=== PATIENT | female | born 1970 | race Caucasian/White ===

== ENCOUNTER → 2018-02-06 01:26 | Outpatient (CLI) | payer OTHER, SELFPAY ==
--- NOTE | 2018-02-06 10:30 | MERGE_ITS ---
*[facility]* *[facility]* [address] [place] [address] Date of study: 02/06/2018 Transthoracic Echocardiography M-mode, complete 2D, complete spectral Doppler, and color Doppler *STUDY CONCLUSIONS* Summary: 1. Left ventricle: The cavity size was normal. Wall thickness was at the upper limits of normal. Systolic function was normal. The estimated ejection fraction was 55-60%. Wall motion was normal; there were no regional wall motion abnormalities. 2. Right ventricle: The cavity size was dilated. Systolic function was mildly reduced. 3. Ventricular septum: The contour showed diastolic flattening. These changes are consistent with RV volume overload. 4. Atrial septum: There was a possible atrial level defect with left to right shunt. 5. Tricuspid valve: There was mild-moderate regurgitation. 6. Pulmonary arteries: Pulmonary systolic pressure was increased, in the range of 40mm Hg to 45mm Hg. 7. Inferior vena cava: The vessel was patent and normal in size. The respirophasic diameter changes were in the normal range (greater than or equal to 50%), consistent with normal central venous pressure. *PATIENT PRESENTATION* Height: 175.3cm ((69in) ) S/D Pressure: 130 / 78 Weight: 117.9kg ((259.5lb) ) BSA: 2.45m^2 Test start time: 10:40 AM. Test stop time: 11:50 AM. PERFORMING Unknown PERFORMING [facility] CONTRACT ASSOCIATE MANAGER Heather Velazquez, RT (R)(CT), RDCS ORDERING Lelo Moncada Pa-C REFERRING Antwan Pa-Lelo England Pa-C, Katherine Clemente *PROCEDURE DATA* Procedure information: The patient was identified by two identifiers. This study was interpreted by [facility]. Pertinent images and digital data are archived for permanent storage and are available for subsequent review. No prior study was available for comparison. Study status: Routine. Transthoracic echocardiography. M-mode, complete 2D, complete spectral Doppler, and color Doppler. A Transthoracic Echocardiogram was performed. Scanning was performed from the parasternal, apical, subcostal, and suprasternal notch acoustic windows. Images were obtained using an [id number] cardiac ultrasound machine. Image quality was adequate. Study completion: The patient tolerated the procedure well. There were no complications. History: PMH: Heart murmur. *CARDIAC ANATOMY* Left ventricle: The cavity size was normal. Wall thickness was at the upper limits of normal. Systolic function was normal. The estimated ejection fraction was 55-60%. Wall motion was normal; there were no regional wall motion abnormalities. Aortic valve: Trileaflet; normal thickness leaflets. Mobility was not restricted. Doppler: Transvalvular velocity was within the normal range. There was no stenosis. There was trivial regurgitation. VTI ratio of LVOT to aortic valve: 0.75. Valve area (VTI): 2.4cm^2. Indexed valve area (VTI): 1cm^2/m^2. Peak velocity ratio of LVOT to aortic valve: 0.77. Valve area (Vmax): 2.5cm^2. Indexed valve area (Vmax): 1cm^2/m^2. Mean velocity ratio of LVOT to aortic valve: 0.73. Valve area (Vmean): 2.3cm^2. Indexed valve area (Vmean): 0.9cm^2/m^2. Mean gradient (S): 6.4mm Hg. Peak gradient (S): 11.1mm Hg. Aorta: Aortic root: The aortic root was normal in size. Ascending aorta: The ascending aorta was normal in size. Mitral valve: Structurally normal valve. Mobility was not restricted. Doppler: Transvalvular velocity was within the normal range. There was no evidence for stenosis. There was trivial regurgitation. Valve area by pressure half-time: 4cm^2. Indexed valve area by pressure half-time: 1.6cm^2/m^2. Peak gradient (D): 3.3mm Hg. Left atrium: The atrium was normal in size. Atrial septum: There was a possible atrial level defect with left to right shunt. Right ventricle: The cavity size was dilated. Systolic function was mildly reduced. Ventricular septum: The contour showed diastolic flattening. These changes are consistent with RV volume overload. Pulmonic valve: Poorly visualized. Doppler: Transvalvular velocity was within the normal range. There was no evidence for stenosis. There was trivial regurgitation. Tricuspid valve: Structurally normal valve. Doppler: Transvalvular velocity was within the normal range. There was no evidence for stenosis. There was mild-moderate regurgitation. Pulmonary artery: Poorly visualized. Pulmonary systolic pressure was increased, in the range of 40mm Hg to 45mm Hg. Right atrium: The atrium was normal in size. Pericardium: There was no pericardial effusion. Systemic veins: Inferior vena cava: Well visualized. The vessel was patent and normal in size. The respirophasic diameter changes were in the normal range (greater than or equal to 50%), consistent with normal central venous pressure. Baseline ECG: Normal sinus rhythm. Measurements Left ventricle Value Reference LV ID, ED, PLAX 4.6 cm 3.5 - 6.0 LV ID, ES, PLAX 3.2 cm 2.1 - 4.0 LV PW thickness, ED, PLAX 1.0 cm LV end-diastolic volume, 1-p A2C 80 ml LV ejection fraction, 1-p A2C 64 % LV end-diastolic volume, 1-p A4C 87 ml LV ejection fraction, 1-p A4C 66 % LV e', lateral 0.126 m/sec LV E/e', lateral 7 LV e', medial 0.105 m/sec LV E/e', medial 9 LV e', average 0.115 m/sec LV E/e', average 8 Ventricular septum Value Reference IVS thickness, ED, PLAX 1.1 cm LVOT Value Reference LVOT ID, A-P 2.0 cm LVOT area 3.2 cm^2 LVOT peak velocity, S 1.29 m/sec LVOT mean velocity, S 0.89 m/sec LVOT VTI, S 29.0 cm LVOT peak gradient, S 6.6 mm Hg LVOT mean gradient, S 3.6 mm Hg Stroke volume (SV), LVOT DP 93 ml Stroke index (SV/bsa), LVOT DP 38 ml/m^2 Aortic valve Value Reference Aortic valve peak velocity, S 1.7 m/sec Aortic valve mean velocity, S 1.22 m/sec Aortic valve VTI, S 38.5 cm Aortic mean gradient, S 6.4 mm Hg Aortic peak gradient, S 11.1 mm Hg VTI ratio, LVOT/AV 0.75 Aortic valve area, VTI 2.4 cm^2 Velocity ratio, peak, LVOT/AV 0.77 Aortic valve area, peak velocity 2.5 cm^2 Velocity ratio, mean, LVOT/AV 0.73 Aortic valve area, mean velocity 2.3 cm^2 Aortic valve area/bsa, mean velocity 0.9 cm^2/m^2 Aorta Value Reference Aortic root ID, ED 3.0 cm Ascending aorta ID, A-P, S 3.4 cm RVOT Value Reference RVOT VTI, S 21.1 cm Left atrium Value Reference LA ID, A-P, ES 3.8 cm LA ID/bsa, A-P 1.6 cm/m^2 <=2.2 LA area, ES, A4C (H) 23.9 cm^2 8.8 - 23.4 LA area, ES, A2C 20 cm^2 LA volume/bsa, ES, 1-p A4C 32 ml/m^2 LA volume, ES, 2-p 69 ml LA volume/bsa, ES, 2-p 28 ml/m^2 LA/aortic root ratio 1.26 Mitral valve Value Reference Mitral E-wave peak velocity 0.91 m/sec Mitral A-wave peak velocity 0.54 m/sec Mitral deceleration time 188 ms 150 - 230 Mitral pressure half-time 55 ms Mitral peak gradient, D 3.3 mm Hg Mitral A-wave duration 169 ms Mitral E/A ratio, peak 1.7 Mitral valve area, PHT, DP 4 cm^2 Pulmonary veins Value Reference Pulmonary vein peak velocity, S 0.66 m/sec Pulmonary vein peak velocity, D 0.73 m/sec Pulmonary vein velocity ratio, peak, 0.9 S/D Pulmonary vein A-wave reversal peak 0.36 m/sec velocity Pulmonary vein A-wave reversal 195 ms duration PVa-MVa duration difference 26 ms Tricuspid valve Value Reference Tricuspid regurg peak velocity 3.1 m/sec Tricuspid peak RV-RA gradient 39.2 mm Hg Right atrium Value Reference RA area, ES, A4C 17.4 cm^2 8.3 - 19.5 Legend: (L) and (H) edwar values outside specified reference range. I have personally reviewed the images and have reviewed and edited the reported findings. Electronically signed by Pauly Paige 02/06/2018 15:24
== END ==
PROVIDERS: PCP Nurse Practitioner Family; Visit Provider Physician Assistant Medical
DX: R01.1 Cardiac murmur, unspecified (principal); I07.1 Rheumatic tricuspid insufficiency; I50.1 Left ventricular failure, unspecified; I10 Essential (primary) hypertension
CPT/HCPCS: 93306

== ENCOUNTER 2018-10-09 17:50 | Outpatient (REF) | payer OTHER, SELFPAY ==
--- NOTE | 2018-10-09 16:45 | PAPFT_PTH ---
PATIENT: Sanam Christian LOC: [facility] U#:[id number] AGE/SX: 48/F ROOM: RE10/09/[address]: Mya Duffy : 1970 BED: DIS: 10/09/2018 SPEC #: [id number] RECD: 10/10/18 13:03 STATUS: JIHAN REKryzsztof #: [id number] KULDEEP: 10/09/18 16:[address]: Mya Duffy [facility] Cytology RECD BY: Sanam Das ENTERED: 10/10/18 13:03 SP TYPE: PAPFT OTHR DR: Wilma Parra Tissues: 1 - CX/ENDOCX FOR PAP SMEARS Procedures: PAP THIN PREP/UVM Screening HPV DNA PROBE Comments: [id number]
== END 2018-10-09 18:10 ==
LOC: NCHCN 17:50
PROVIDERS: PCP Nurse Practitioner Family; Visit Provider Nurse Practitioner Family
DX: Z12.4 Encounter for screening for malignant neoplasm of cervix (principal); Z11.51 Encounter for screening for human papillomavirus (HPV)
CPT/HCPCS: 88142; 87624

== ENCOUNTER 2018-10-24 00:52 | Outpatient (CLI) | payer OTHER, SELFPAY ==
--- NOTE | 2018-10-24 15:40 | DI.MAMMO_ITS ---
SYMPTOMS/DIAGNOSIS: [facility], Z00.00, SCREENING, Z12.39 BILATERAL SCREENING MAMMOGRAMS: Mammograms were interpreted according to the usual protocol including computer analysis with CAD system, tomosynthesis and C view imaging. Comparison is made with exams from 2012 through 2017. The breasts are composed of heterogeneously dense fibroglandular tissue, breast density category C. No suspicious masses or suspicious microcalcifications are seen. There has been no significant change. IMPRESSION: Category 1C, negative mammogram. Yearly screening mammography is recommended. [facility] ASSESSMENT OF FINDINGS: Negative. Category 1. Patient will receive a letter notifying them of these results. Bi-RADS category C. The breasts are heterogeneously dense, which may obscure small masses.
== END 2018-10-24 01:12 ==
PROVIDERS: PCP Nurse Practitioner Family; Visit Provider Nurse Practitioner Family
DX: Z00.00 Encounter for general adult medical examination without abnormal findings (principal); Z12.31 Encounter for screening mammogram for malignant neoplasm of breast
CPT/HCPCS: 77063; 77067

== ENCOUNTER 2019-04-13 19:16 | Outpatient (REF) | payer OTHER, SELFPAY ==
[2019-04-13 20:43] LABS: Anion Gap 8.4 mmol/L (3-11); BUN 16 mg/dL (7-18); CO2 28.6 mmol/L (21.0-32.0); Calcium 8.8 mg/dL (8.5-10.1); Chloride 104 mmol/L (98-107); Glucose 95 mg/dL (70-100); Potassium 3.8 mmol/L (3.5-5.1); Sodium 141 mmol/L (136-145)
== END 2019-04-13 19:36 ==
LOC: NCHCN 19:16
PROVIDERS: PCP Nurse Practitioner Family; Visit Provider Nurse Practitioner Family
DX: I10 Essential (primary) hypertension (principal)
CPT/HCPCS: 80048

== ENCOUNTER 2019-05-04 08:25 | Outpatient (REF) | payer OTHER, SELFPAY ==
[2019-05-04 22:13] LABS: Calculated LDL 73 mg/dL; Cholesterol 128 mg/dL (<200); Glucose 90 mg/dL (74-106); HDL Cholesterol 44 mg/dL (40-60); Triglyceride 55 mg/dL (<150)
== END 2019-05-04 08:45 ==
LOC: NCHCN 08:25
PROVIDERS: PCP Nurse Practitioner Family; Visit Provider Nurse Practitioner Family
DX: I10 Essential (primary) hypertension (principal); E66.9 Obesity, unspecified
CPT/HCPCS: 80061; 82947

== ENCOUNTER 2019-11-04 22:50 | Outpatient (REF) | payer OTHER, SELFPAY ==
[2019-11-04 20:46] LABS: ALT 40 U/L (14-59); AST 25 U/L (15-37); Alkaline Phosphatase 67 U/L (46-116); BUN 18 mg/dL (7-18); CREATININE 0.98 mg/dL (0.55-1.02); Chloride 101 mmol/L (98-107); Glucose 111 mg/dL (74-106); Potassium 3.2 mmol/L (3.5-5.1); Sodium 137 mmol/L (136-145); Total Protein 7.5 g/dL (6.4-8.2)
[2019-11-04 21:15] LABS: Bilirubin, Direct 0.23 mg/dL (0.00-0.20)
== END 2019-11-04 23:10 ==
LOC: NCHCN 22:50
PROVIDERS: PCP Nurse Practitioner Family; Visit Provider Nurse Practitioner Family
DX: I10 Essential (primary) hypertension (principal); Z79.899 Other long term (current) drug therapy
CPT/HCPCS: 80048; 80076

== ENCOUNTER 2019-11-11 11:57 | Outpatient (CLI) | payer OTHER, SELFPAY ==
--- NOTE | 2019-11-11 | DI.MAMMO_ITS ---
EXAM: MG MAMMO SCREENING CLINICAL HISTORY: SCREENING Z12.39 TECHNIQUE: Mammograms were interpreted according to the usual protocol including computer analysis w [employer] CAD system, tomosynthesis and C-view imaging. COMPARISON: FINDINGS: The breasts are heterogeneously dense. No dominant mass or clumped microcalcification is identified in either breast. The current examination is compared with previous examinations including October 2018 and there has been no significant interval change in appearance in comparison with the previous studi es. IMPRESSION: No specific evidence of malignancy at this time. Routine screening examinations are suggested at ye darin intervals in this age group according to the ACS ACR guidelines. Category: BI-RADS Cat 1 - Negative Breast Density - Category C - Heterogeneously dense
== END 2019-11-11 12:17 ==
PROVIDERS: PCP Nurse Practitioner Family; Visit Provider Nurse Practitioner Family
DX: Z12.31 Encounter for screening mammogram for malignant neoplasm of breast (principal)
CPT/HCPCS: 77063; 77067

== ENCOUNTER 2019-12-16 19:25 | Outpatient (REF) | payer OTHER, SELFPAY ==
[2019-12-16 20:40] LABS: ALT 25 U/L (14-59); AST 18 U/L (15-37); Albumin 3.9 g/dL (3.4-5.0); Alkaline Phosphatase 63 U/L (46-116); Anion Gap 9.3 mmol/L (3-11); BUN 14 mg/dL (7-18); Bilirubin, Direct 0.19 mg/dL (0.00-0.20); Bilirubin, Total 0.8 mg/dL (0.2-1.0); CO2 28.7 mmol/L (21.0-32.0); CREATININE 0.69 mg/dL (0.55-1.02); Calcium 8.8 mg/dL (8.5-10.1); Chloride 100 mmol/L (98-107); Glucose 103 mg/dL (74-106); Potassium 3.6 mmol/L (3.5-5.1); Sodium 138 mmol/L (136-145); Total Protein 7.4 g/dL (6.4-8.2)
== END 2019-12-16 19:45 ==
LOC: NCHCN 19:25
PROVIDERS: PCP Nurse Practitioner Family; Visit Provider Nurse Practitioner Family
DX: B35.1 Tinea unguium (principal); Z51.81 Encounter for therapeutic drug level monitoring; I10 Essential (primary) hypertension
CPT/HCPCS: 80048; 80076

== ENCOUNTER 2020-02-02 16:48 | Outpatient (REF) | payer OTHER, SELFPAY ==
[2020-02-02 19:29] LABS: ALT 23 U/L (14-59); AST 17 U/L (15-37); Albumin 3.9 g/dL (3.4-5.0); Alkaline Phosphatase 59 U/L (46-116); Bilirubin, Direct 0.18 mg/dL (0.00-0.20); Bilirubin, Total 0.8 mg/dL (0.2-1.0); CREATININE 0.67 mg/dL (0.55-1.02); Total Protein 7.3 g/dL (6.4-8.2)
== END 2020-02-02 17:08 ==
LOC: NCHCN 16:48
PROVIDERS: PCP Nurse Practitioner Family; Visit Provider Nurse Practitioner Family
DX: Z79.899 Other long term (current) drug therapy (principal); Z51.81 Encounter for therapeutic drug level monitoring
CPT/HCPCS: 80076; 82565

== ENCOUNTER 2021-05-15 16:55 | Outpatient (REF) | payer OTHER, SELFPAY ==
[2021-05-15 16:58] LABS: Anion Gap 7.4 mmol/L (3-11); BUN 15 mg/dL (7-18); CO2 31.6 mmol/L (21.0-32.0); CREATININE 0.6 mg/dL (0.55-1.02); Calcium 8.8 mg/dL (8.5-10.1); Chloride 100 mmol/L (98-107); Glucose 84 mg/dL (74-106); Magnesium 2.1 mg/dL (1.8-2.4); Potassium 3.5 mmol/L (3.5-5.1); Sodium 139 mmol/L (136-145)
== END 2021-05-15 16:56 | disposition home or self-care (01) ==
LOC: NCHCN 16:55
PROVIDERS: PCP Nurse Practitioner Family; Visit Provider Nurse Practitioner Family
DX: I10 Essential (primary) hypertension (principal); Z51.81 Encounter for therapeutic drug level monitoring
CPT/HCPCS: 80048; 83735

== ENCOUNTER → 2021-12-27 00:13 | Outpatient (CLI) | payer BC, SELFPAY ==
--- OUTSIDE RECORDS SUMMARY | 2021-12-27 00:15 | XMS_ITS | Encounter Summary ---
:1970 Author Organization [place] [address] Care Team Providers Name Role Phone Unavailable Primary Care Provider Unavailable Encounter Details Date Type Department Care Team Description 05/16/2018 Abstract Cardiology at [facility], Lipoma of abdominal wall [address] [facility] [place] [address] Social History Tobacco Use Types Packs/Day Years Used Date Never Assessed Sex Assigned at Date Recorded Not on file documented as of this encounter Plan of Treatment Not on filedocumented as of this encounter Visit Diagnoses Diagnosis Lipoma of abdominal wall Lipoma of other skin and subcutaneous ti ssue documented in this encounter
--- OUTSIDE RECORDS SUMMARY | 2021-12-27 00:15 | XMS_ITS | Encounter Summary ---
:1970 Author Organization [facility] [place] [address] Care Team Providers Name Role Phone Unavailable Primary Care Provider Unavailable Encounter Details Date Type Department Care Team Description 06/11/2018 Interpretation Only [facility] Marco Vázquez Jr., Pulmonary [facility] [address] [place], [place] [address] [place] [address] [phone] (Wo rk) Social History Tobacco Use Types Packs/Day Years Used Date Former Smoker Smokeless Tobacco: Never Used Comments: very briefly smoked in HS Sex Assigned at Date Recorded Not on file documented as of this encounter Plan of Treatment Not on filedocumented as of this encounter Procedures Procedure Name Priority Date/Time Associated Diagnosis Comme nts ECHO SCAN (SCAN) 06/12/2018 12:00 AM Resu lts for this EST procedure are i n the results section. documented in this encounter Results SCAN DOC: ECHO (06/12/2018 12:00 AM EST) Narrative 06/12/2018 12:00 AM EST This result has an attachment that is no t available. Ordered by an unspecified provider. Scanning Provider MEDIA MGR SCAN EXT ORDR/RSLT documented in this encounter Visit Diagnoses Diagnosis Pulmonary HTN Other chronic pulmonary heart diseases documented in this encounter
--- OUTSIDE RECORDS SUMMARY | 2021-12-27 00:15 | XMS_ITS | Clinical Summary ---
:1970 Author Organization [facility] [place] [address] Care Team Providers Name Role Phone Mya Duffy Vaughn HANSEN Primary Care Provider Allergies Active Allergy Reactions Severity Noted Date Comments Malachi Inhibitors 05/16/2018 Hymenoptera Allergenic Extract 05/16/2018 Medications Medication Sig Dispensed Refills Start Date End Date Status hydroCHLOROthiazide Take 50 mg by 0 Active (HYDRODIURIL) 50 mg Tablet mouth daily. magnesium 250 mg Tablet Take 1 tablet 0 Active by mouth daily. meclizine (ANTIVERT) 25 mg Take 25 mg by 0 Active Tablet mouth 3 times daily as needed. Active Problems Problem Noted Date Pulmonary HTN 06/12/2018 Heart murmur 05/16/2018 Edema 05/16/2018 Vertigo 05/16/2018 Lipoma of abdominal wall 05/16/2018 Obesity 05/16/2018 Hypertension 05/16/2018 Family History Medical History Relation Comments Hypertension Brother 1 Heart Failure Brother 3 Hypertension Brother 3 Heart Murmur Maternal Grandmother Heart Murmur Mother Heart Surgery Mother Heart Murmur Sister Relation Status Comments Brother 1 Alive Brother 2 Brother 3 Alive Father Maternal Grandmother Mother Sister Alive Social History Tobacco Use Types Packs/Day Years Used Date Former Smoker Smokeless Tobacco: Never Used Comments: very briefly smoked in HS Sex Assigned at Date Recorded Not on file Last Filed Vital Signs Vital Sign Reading Time Taken Comments Blood Pressure 110/70 05/20/2018 1:27 PM EST Pulse 80 05/20/2018 1:18 PM EST per ekg Temperature - - Respiratory Rate - - Oxygen Saturation - - Inhaled Oxygen Concentration - - Weight 126.1 kg (278 lb) 05/20/2018 1:18 PM EST Height 175.3 cm (5' 9) 05/20/2018 1:18 PM EST Body Mass Index 41.05 05/20/2018 1:18 PM EST Plan of Treatment Health Maintenance Due Date Last Done Comments Covid-19 Vaccine (#1) 09/21/1975 HIV screen 1988 Hepatitis C Screening 1988 Lipid Screening 1988 Tdap adult 1989 Tetanus vaccine 1989 HPV test 2000 PAP Smear 2000 Breast Cancer Share Decision Needed 2010 Colonoscopy 09/21/2015 Breast Cancer screening 2020 Zoster vaccine (1 of 2) 2020 Influenza (Flu) vaccine (1 of 1 - Influenza standard 02/08/2022 series) Insurance Payer Benefit Plan / Subscriber ID Effective Dates Phone Addre ss Type Group AETNA AETNA CHOICE POS II [id number] 2015-Present [address] [place] [address] (Work) [id number] Care Teams Duplex Trimmer Relationship Specialty Start Date End Date Mya Duffy APRN PCP - General Family Medicine 06/17/18 [address] [place] [address]
--- NOTE | 2021-12-27 17:20 | DI.MAMMO_ITS ---
Exam(s) MAMMO SCREENING EXAM: MAMMO SCREENING CLINICAL HISTORY: SCREENING FOR BREAST CA, Z12.39. TECHNIQUE: Bilateral full field digital CC and MLO mammographic images were obtained with 3D tomosyn thesis and utilizing computer aided detection (CAD). COMPARISON: Prior mammograms were reviewed, the most recent being November 2019. FINDINGS: There has been no significant change in the appearance and distribution of fibroglandular tissue There are no new spiculated masses nor malignant appearing microcalcification groups. There is no significant architectural distortion nor skin thickening-retraction. IMPRESSION: No radiographic evidence of malignancy. BI-RADS Category 1 - Negative Breast Density - Category C - Heterogeneously dense Breast density Category C or D implies that the patient has dense breast tissue. Dense breast tissue can make it harder to find cancer on a mammogram. Dense breast tissue is also associated with an incr eased risk of breast cancer. This information about the result of the mammogram report was provided to the patient to raise their awareness. Use this report when you speak with the patient about their risks for breast cancer, which includes their family history. At that time, you may recommend additional screening tests (Ultrasoun d or MRI) as these tests may add significant information. A negative radiographic report should not delay biopsy if a dominant or clinically suspicious mass is present. Up to ten percent of cancers are not identified on mammography. A negative report may reinforce clinical impression. Adenosis and dense breasts may obscure an underlying neoplasm. False positive reports average 6 to 10%. Patient will receive a letter notifying them of these results.
== END ==
PROVIDERS: PCP Nurse Practitioner Family; Visit Provider Nurse Practitioner Family
DX: Z12.31 Encounter for screening mammogram for malignant neoplasm of breast (principal)
CPT/HCPCS: 77063; 77067

== ENCOUNTER 2022-05-16 09:22 | Outpatient (REF) | payer BC, SELFPAY ==
[2022-05-16 15:45] LABS: Anion Gap 6.7 mmol/L (3-11); BUN 13 mg/dL (7-18); CO2 32.3 mmol/L (21.0-32.0); CREATININE 0.6 mg/dL (0.55-1.02); Calcium 8.9 mg/dL (8.5-10.1); Calculated LDL 64 mg/dL (<100); Chloride 102 mmol/L (98-107); Cholesterol 129 mg/dL (<200); Estimated GFR 108.61 (mL/min/1.73m2); Glucose 97 mg/dL (74-106); HDL Cholesterol 50 mg/dL (40-60); Potassium 3.3 mmol/L (3.5-5.1); Sodium 141 mmol/L (136-145); Triglyceride 76 mg/dL (<150)
== END 2022-05-16 09:23 | disposition home or self-care (01) ==
LOC: NCHCN 09:22
PROVIDERS: PCP Nurse Practitioner Family; Visit Provider Nurse Practitioner Family
DX: Z00.00 Encounter for general adult medical examination without abnormal findings (principal)
CPT/HCPCS: 80048; 80061

== ENCOUNTER 2022-12-10 13:26 | Outpatient (REF) | payer BC, SELFPAY ==
[2022-12-10 15:38] LABS: Anion Gap 5.3 mmol/L (3-11); BUN 15 mg/dL (7-18); CO2 32.7 mmol/L (21.0-32.0); CREATININE 0.7 mg/dL (0.55-1.02); Chloride 102 mmol/L (98-107); Glucose 98 mg/dL (74-106); Potassium 3.6 mmol/L (3.5-5.1); Sodium 140 mmol/L (136-145)
== END 2022-12-10 13:27 | disposition home or self-care (01) ==
LOC: NCHCN 13:26
PROVIDERS: PCP Nurse Practitioner Family; Visit Provider Nurse Practitioner Family
DX: I10 Essential (primary) hypertension (principal)
CPT/HCPCS: 80048

== ENCOUNTER 2023-06-04 09:19 | Outpatient (REF) | payer BC, SELFPAY ==
[2023-06-04 17:23] LABS: BUN 17 mg/dL (7-18); CREATININE 0.8 mg/dL (0.55-1.02); Calcium 8.8 mg/dL (8.5-10.1); Calculated LDL 69 mg/dL (<100); Chloride 101 mmol/L (98-107); Cholesterol 132 mg/dL (<200); Glucose 104 mg/dL (74-106); HDL Cholesterol 50 mg/dL (40-60); Potassium 3.4 mmol/L (3.5-5.1); Sodium 136 mmol/L (136-145); Triglyceride 68 mg/dL (<150)
== END 2023-06-04 09:20 | disposition home or self-care (01) ==
LOC: NCHCN 09:19
PROVIDERS: PCP Nurse Practitioner Family; Visit Provider Nurse Practitioner Family
DX: Z00.00 Encounter for general adult medical examination without abnormal findings (principal); Z13.220 Encounter for screening for lipoid disorders; Z13.228 Encounter for screening for other metabolic disorders
CPT/HCPCS: 80048; 80061

== ENCOUNTER → 2024-01-03 00:08 | Outpatient (CLI) | payer BC, SELFPAY ==
--- NOTE | 2024-01-03 | DI.MAMMO_ITS ---
Exam(s) MAMMO SCREENING EXAM: MAMMO SCREENING CLINICAL HISTORY: Screening, Z12.31 TECHNIQUE: Bilateral full field digital CC and MLO mammographic images were obtained with 3D tomosyn thesis and utilizing computer aided detection (CAD). COMPARISON: Available for comparison. FINDINGS: Masses/Architectural Distortion: None seen. Microcalcifications: No suspicious pleomorphic-type are seen. Skin Thickening/Nipple Retraction: None. IMPRESSION: 1. No significant interval change with no specific features of malignancy noted. 2. Unless there is more urgent need, screening mammography is recommended, as per [employer] [employer] guidelines. BI-RADS Category 1 - Negative Breast Density - Category C - Heterogeneously dense Breast density category C or D implies that the patient has dense breast tissue. Dense breast tissue is very common and is not abnormal but dense breast tissue can make it harder to find cancer on a ma mmogram. Also, dense breast tissue may increase their breast cancer risk. This information about the result of the mammogram report was provided to the patient to raise their awareness. Use this report when you speak with the patient about their risks for breast cancer, which includes their family hist ory. At that time, you may recommend for more screening tests (Ultrasound or MRI) as they might be us eful based on their risk. A negative radiographic report should not delay biopsy if a dominant or clinically suspicious mass is present. Up to ten percent of cancers are not identified on mammography. A negative report may reinforce clinical impression. Adenosis and dense breasts may obscure an underlying neoplasm. False positive reports average 6 to 10%. Patient will receive a letter notifying them of these results.
== END ==
PROVIDERS: PCP Nurse Practitioner Family; Visit Provider Nurse Practitioner Family
DX: Z12.31 Encounter for screening mammogram for malignant neoplasm of breast (principal); R92.333 Mammographic heterogeneous density, bilateral breasts
CPT/HCPCS: 77063; 77067

== ENCOUNTER 2024-06-08 09:12 | Outpatient (REF) | payer BC, SELFPAY ==
--- NOTE | 2024-06-08 07:45 | PAPFT_PTH ---
PATIENT: Sanam Christian LOC: [facility]#:[id number] AGE/SX: 53/F ROOM: RE06/08/[address]: Abram Jameson : 1970 BED: DIS: 06/08/2024 SPEC #: [id number] RECD: 06/08/24 17:33 STATUS: JIHAN REQ #: [id number] KULDEEP: 06/08/24 07:[address]: Abram Jameson DEPT: [facility] Cytology RECD BY: Sanam Das Tissues: 1 - CX/ENDOCX FOR PAP SMEARS Procedures: PAP THIN PREP/UVM Screening HPV DNA PROBE Comments: [id number] (HPV 16 & 18/45)
[2024-06-08 16:12] LABS: Anion Gap 10.6 mmol/L (3-11); BUN 12 mg/dL (7-18); CO2 28.4 mmol/L (21.0-32.0); CREATININE 0.9 mg/dL (0.55-1.02); Chloride 102 mmol/L (98-107); Estimated GFR 76.44 (mL/min/1.73m2); Glucose 101 mg/dL (74-106); Potassium 3.3 mmol/L (3.5-5.1); Sodium 141 mmol/L (136-145)
[2024-06-08 16:47] LABS: Hemoglobin A1C 5.8 % (<5.7)
== END 2024-06-08 09:13 | disposition home or self-care (01) ==
LOC: NCHCN 09:12
PROVIDERS: PCP Physician Assistant Medical; Visit Provider Physician Assistant Medical
DX: Z11.51 Encounter for screening for human papillomavirus (HPV) (principal); I10 Essential (primary) hypertension; Z13.1 Encounter for screening for diabetes mellitus; Z01.419 Encounter for gynecological examination (general) (routine) without abnormal findings
CPT/HCPCS: 80048; 88142; 83036; 87624

== ENCOUNTER 2024-11-25 17:34 | Outpatient (REF) | payer BC, SELFPAY ==
[2024-11-25 21:06] LABS: Anion Gap 6.8 mmol/L (3-11); BUN 17 mg/dL (7-18); CO2 32.2 mmol/L (21.0-32.0); CREATININE 0.7 mg/dL (0.55-1.02); Calcium 8.9 mg/dL (8.5-10.1); Chloride 101 mmol/L (98-107); Estimated GFR 102.71 (mL/min/1.73m2); Glucose 110 mg/dL (74-106); Sodium 140 mmol/L (136-145)
== END 2024-11-25 17:35 | disposition home or self-care (01) ==
LOC: NCHCN 17:34
PROVIDERS: PCP Physician Assistant Medical; Visit Provider Physician Assistant Medical
DX: E87.6 Hypokalemia (principal); I10 Essential (primary) hypertension
CPT/HCPCS: 80048

== ENCOUNTER 2025-01-01 18:08 | Outpatient (REF) | payer BC, SELFPAY ==
[2025-01-01 16:34] LABS: Anion Gap 5.0 mmol/L (3-11); BUN 16 mg/dL (7-18); CO2 32.0 mmol/L (21.0-32.0); Calcium 8.7 mg/dL (8.5-10.1); Chloride 103 mmol/L (98-107); Estimated GFR 102.71 (mL/min/1.73m2); Glucose 104 mg/dL (74-106); Potassium 3.3 mmol/L (3.5-5.1); Sodium 140 mmol/L (136-145)
== END 2025-01-01 18:09 | disposition home or self-care (01) ==
LOC: NCHCN 18:08
PROVIDERS: PCP Physician Assistant Medical; Visit Provider Physician Assistant Medical
DX: E87.6 Hypokalemia (principal)
CPT/HCPCS: 80048

== ENCOUNTER 2025-01-22 17:14 | Outpatient (REF) | payer BC, SELFPAY ==
[2025-01-22 16:33] LABS: Anion Gap 8.5 mmol/L (3-11); BUN 14 mg/dL (7-18); CO2 30.5 mmol/L (21.0-32.0); Calcium 8.5 mg/dL (8.5-10.1); Chloride 102 mmol/L (98-107); Estimated GFR 102.71 (mL/min/1.73m2); Glucose 136 mg/dL (74-106); Potassium 3.2 mmol/L (3.5-5.1); Sodium 141 mmol/L (136-145)
== END 2025-01-22 17:15 | disposition home or self-care (01) ==
LOC: NCHCN 17:14
PROVIDERS: PCP Physician Assistant Medical; Visit Provider Physician Assistant Medical
DX: E87.6 Hypokalemia (principal)
CPT/HCPCS: 80048

== ENCOUNTER 2025-03-10 20:17 | Outpatient (REF) | payer BC, SELFPAY ==
[2025-03-10 20:25] LABS: Anion Gap 6.9 mmol/L (3-11); BUN 13 mg/dL (7-18); CO2 29.1 mmol/L (21.0-32.0); Calcium 8.4 mg/dL (8.5-10.1); Chloride 104 mmol/L (98-107); Estimated GFR 87.50 (mL/min/1.73m2); Glucose 127 mg/dL (74-106); Potassium 4.2 mmol/L (3.5-5.1); Sodium 140 mmol/L (136-145)
[2025-03-10 20:29] LABS: Hemoglobin A1C 5.5 % (<5.7)
== END 2025-03-10 20:18 | disposition home or self-care (01) ==
LOC: NCHCN 20:17
PROVIDERS: PCP Physician Assistant Medical; Visit Provider Physician Assistant Medical
DX: R73.03 Prediabetes (principal); I10 Essential (primary) hypertension; E87.6 Hypokalemia
CPT/HCPCS: 80048; 83036

== ENCOUNTER → 2025-05-18 00:23 | Outpatient (CLI) | payer BC, SELFPAY ==
--- NOTE | 2025-05-18 13:09 | DI.MAMMO_ITS ---
Exam(s) MAMMO SCREENING EXAM: MAMMO SCREENING CLINICAL HISTORY: SCREENING, Z12.31 TECHNIQUE: Mammograms were interpreted according to the usual protocol including computer analysis with CAD system, tomosynthesis and C-view imaging. COMPARISON: 2016 through 2023 FINDINGS: The breasts are composed of heterogeneously dense fibroglandular densities, Breast Density category C. No suspicious masses or suspicious microcalcifications are seen. No skin thickening or abnormal axillary lymph nodes are seen. There has been no significant change from prior exams. IMPRESSION: BI-RADS Category 1, Negative mammogram. Yearly screening mammography is recommended. Breast Density: Category C - The breasts are heterogeneously dense, which may obscure small masses. Breast density Category C or D implies that the patient has dense breast tissue. Dense breast tissue can make it harder to find cancer on a mammogram. Dense breast tissue is also associated with an increased risk of breast cancer. This information about the result of the mammogram report was provided to the patient to raise their awareness. Use this report when you speak with the patient about their risks for breast cancer, which includes their family history. At that time, you may recommend additional screening tests (Ultrasound or MRI) as these tests may add significant information. A negative radiographic report should not delay biopsy if a dominant or clinically suspicious mass is present. Up to ten percent of cancers are not identified on mammography. A negative report may reinforce clinical impression. Adenosis and dense breasts may obscure an underlying neoplasm. False positive reports average 6 to 10%.
== END ==
LOC: DI 00:24
PROVIDERS: PCP Physician Assistant Medical; Visit Provider Physician Assistant Medical
DX: Z12.31 Encounter for screening mammogram for malignant neoplasm of breast (principal); R92.8 Other abnormal and inconclusive findings on diagnostic imaging of breast; R92.333 Mammographic heterogeneous density, bilateral breasts
CPT/HCPCS: 77063; 77067

== ENCOUNTER 2025-06-08 10:21 | Outpatient (REF) | payer BC, SELFPAY ==
[2025-06-08 16:14] LABS: ALT 27 U/L (10-49); AST 26 U/L (<34); Albumin 4.4 g/dL (3.2-5.0); Alkaline Phosphatase 67 U/L (46-116); Anion Gap 8.6 mmol/L (3-11); BUN 13 mg/dL (9-23); Bilirubin, Total 1.3 mg/dL (0.2-1.2); CO2 26.4 mmol/L (20.0-31.0); Calcium 9.0 mg/dL (8.3-10.6); Chloride 105 mmol/L (98-107); Glucose 84 mg/dL (74-106); Potassium 4.0 mmol/L (3.5-5.1); Sodium 140 mmol/L (136-145); Total Protein 7.6 g/dL (5.7-8.2)
== END 2025-06-08 10:22 | disposition home or self-care (01) ==
LOC: NCHCN 10:21
PROVIDERS: PCP Physician Assistant Medical; Visit Provider Physician Assistant Medical
DX: I10 Essential (primary) hypertension (principal); E87.6 Hypokalemia
CPT/HCPCS: 80053